=== PATIENT | female | born 1995 | race Caucasian/White ===

== ENCOUNTER 2020-08-06 06:56 | Emergency (ER) | payer OTHER ==
[~2020-08-06] VITALS: Ht 165.1 cm; Wt 66.7 kg
[2020-08-06] MEDS ORDERED: ACET32TAB PO (07:07)
[2020-08-06] MEDS ORDERED: OXYC-517 PO (07:07)
[2020-08-06] MEDS ORDERED: SERT-141 PO (07:07)
[2020-08-06] MEDS ORDERED: VITA50005 PO (07:07)
[2020-08-06] MEDS ORDERED: AUGM875T28 PO (07:07)
[2020-08-06] MEDS ORDERED: TRAZ-252 PO (07:07)
[2020-08-06 07:55] LABS: BASO % 0.3 % (0.0-1.0); EOS # 0.1 10^3/uL (0.0-0.5); EOS % 1.4 % (0.0-3.0); HEMATOCRIT 43.5 % (36.0-47.0); HEMOGLOBIN 14.8 g/dl (12.0-15.5); LYMPH % 28.8 % (24.0-44.0); MEAN CORPUSCULAR HEMOGLOBIN 29.3 pg (27.0-33.0); MEAN CORPUSCULAR VOLUME 86.1 fl (80.0-96.0); MONO # 0.8 10^3/uL (0.0-0.8); NEUTROPHILS # 6.3 10^3/uL (1.5-8.5); PLATELET COUNT, AUTOMATED 292 10^3/uL (150-450); RED BLOOD COUNT 5.05 10^6/uL (4.00-5.40); WHITE BLOOD COUNT 10.3 10^3/uL (4.0-10.0)
[2020-08-06 08:18] LABS: ALBUMIN 3.7 GM/DL (3.2-5.2); ALT/SGPT 33 U/L (12-78); BILIRUBIN,DIRECT 0.1 MG/DL (0.0-0.2); BILIRUBIN,TOTAL 0.3 MG/DL (0.2-1.0); BLOOD UREA NITROGEN 9 MG/DL (7-18); CALCIUM LEVEL 8.7 MG/DL (8.5-10.1); CARBON DIOXIDE LEVEL 27 MEQ/L (21-32); CHLORIDE LEVEL 108 MEQ/L (98-107); CREATININE FOR GFR 0.72 MG/DL (0.55-1.30); GLOMERULAR FILTRATION RATE > 60.0 (>60); GLUCOSE, FASTING 90 MG/DL (70-100); LIPASE 119 U/L (73-393); POTASSIUM SERUM 3.7 MEQ/L (3.5-5.1); SODIUM LEVEL 140 MEQ/L (136-145); TOTAL PROTEIN 6.9 GM/DL (6.4-8.2)
[2020-08-06] MEDS ORDERED: GLYCERIN ADULT SUPP PR ONE (08:25)
[2020-08-06] MEDS ORDERED: MAGNESIUM CITRATE 300 ML BTL PO ONE (08:25)
[2020-08-06] MEDS ORDERED: METHYLNALTREXONE BROMIDE 12 MG/0.6 ML VIAL (RELISTOR) SC ONE (08:25)
[2020-08-06] MEDS ORDERED: ACETAMINOPHEN 500 MG TAB PO ONE (08:25)
--- NOTE | 2020-08-06 09:09 | REP ---
INDICATION: Abdominal Pain COMPARISON: None. TECHNIQUE: Upright view of the chest with supine and upright views of the abdomen and pelvis. FINDINGS: Frontal upright view of the chest demonstrates no acute cardiopulmonary process or free air below the diaphragm to suspect pneumoperitoneum. Supine and upright views of the abdomen and pelvis demonstrate nonspecific bowel gas pattern without obstruction or perforation. No organomegaly. No abnormal calcifications. Skeletal structures normal for age. IMPRESSION: Nonspecific bowel gas pattern. <Electronically signed by German Guerra > 08/06/20 [id number]
[2020-08-06] MEDS ORDERED: MIRA3350 PO (12:44)
[2020-08-06] MEDS ORDERED: COLA100C5 PO (12:44)
[2020-08-06 12:51] VITALS: BP 121/73
== END 2020-08-06 12:57 | disposition home or self-care (01) ==
LOC: M ED 06:56
DX: K59.00 Constipation, unspecified (principal); R10.84 Generalized abdominal pain; G47.00 Insomnia, unspecified; F33.9 Major depressive disorder, recurrent, unspecified; F41.9 Anxiety disorder, unspecified; Z79.899 Other long term (current) drug therapy

== ENCOUNTER → 2023-06-22 | Outpatient (REF) | payer OTHER ==
[~2023-06-22] MED LIST: ACET32TAB PO; AUGM875T28 PO; COLA100C5 PO; ERGO500029 PO; MIRA3350 PO; OXYC-517 PO; SERT-141 PO; TRAZ-252 PO
== END ==
LOC: M SFHCWAGY 14:55
PROVIDERS: ATTEND Nurse Practitioner Family
DX: Z12.4 Encounter for screening for malignant neoplasm of cervix (principal); Z77.9 Other contact with and (suspected) exposures hazardous to health
CPT/HCPCS: 87624; G0123

== ENCOUNTER → 2024-01-08 | Outpatient (CLI) | payer OTHER | LOC: M PLALAB 10:23 | PROVIDERS: ATTEND Advanced Practice Midwife | DX: Z34.81 Encounter for supervision of other normal pregnancy, first trimester (principal); Z3A.00 Weeks of gestation of pregnancy not specified ==

== ENCOUNTER → 2024-02-08 | Outpatient (CLI) | payer OTHER ==
[2024-02-08 15:19] LABS: HEMATOCRIT 37.9 % (36.0-47.0); HEMOGLOBIN 12.9 g/dl (12.0-15.5); MEAN CORPUSCULAR HEMOGLOBIN 30.4 pg (27.0-33.0); MEAN CORPUSCULAR VOLUME 89.2 fl (80.0-96.0); PLATELET COUNT, AUTOMATED 251 10^3/uL (150-450); RED BLOOD COUNT 4.25 10^6/uL (4.00-5.40); WHITE BLOOD COUNT 10.5 10^3/uL (4.0-10.0)
[2024-02-08 16:17] LABS: HIV 1&2 SCREEN NEGATIVE (NEGATIVE)
[2024-02-08 16:27] LABS: HEPATITIS C VIRUS ABY INDEX < 0.02 INDEX (<0.8)
[2024-02-08 16:47] LABS: GC DNA AMPLIFICATION NEGATIVE (NEGATIVE)
== END ==
LOC: M PLALAB 09:09
PROVIDERS: ATTEND Internal Medicine
DX: Z34.81 Encounter for supervision of other normal pregnancy, first trimester (principal); Z3A.00 Weeks of gestation of pregnancy not specified

== ENCOUNTER → 2024-02-08 | Outpatient (CLI) | payer OTHER | LOC: M PLALAB 09:05 | PROVIDERS: ATTEND Nurse Practitioner Family | DX: Z13.79 Encounter for other screening for genetic and chromosomal anomalies (principal) ==

== ENCOUNTER → 2024-03-18 | Outpatient (CLI) | payer OTHER | LOC: M WHC 07:40 | PROVIDERS: ATTEND Nurse Practitioner Family | DX: Z34.82 Encounter for supervision of other normal pregnancy, second trimester (principal) ==

== ENCOUNTER → 2024-04-08 | Outpatient (CLI) | payer OTHER ==
[2024-04-08 14:58] LABS: Trichomonas vaginalis (AMP) NOT DETECTED (NEGATIVE)
[2024-04-08 15:01] LABS: HEMATOCRIT 35.1 % (36.0-47.0); HEMOGLOBIN 11.8 g/dl (12.0-15.5); MEAN CORPUSCULAR HEMOGLOBIN 30.2 pg (27.0-33.0); MEAN CORPUSCULAR HGB CONC 33.6 g/dl (32.0-36.5); MEAN CORPUSCULAR VOLUME 89.8 fl (80.0-96.0); PLATELET COUNT, AUTOMATED 242 10^3/uL (150-450); RED BLOOD COUNT 3.91 10^6/uL (4.00-5.40); WHITE BLOOD COUNT 10.6 10^3/uL (4.0-10.0)
[2024-04-08 15:22] LABS: GC DNA AMPLIFICATION NEGATIVE (NEGATIVE)
[2024-04-08 15:25] LABS: GLUCOSE CHALLENGE TEST 1 HOUR 130 MG/DL (LESS THAN 140)
[2024-04-08 15:54] LABS: HIV 1&2 SCREEN NEGATIVE (NEGATIVE)
[2024-04-08 16:02] LABS: HEPATITIS C VIRUS ABY INDEX 0.12 INDEX (<0.8)
== END ==
LOC: M PLALAB 10:10
PROVIDERS: ATTEND Nurse Practitioner Family
DX: Z34.83 Encounter for supervision of other normal pregnancy, third trimester (principal); Z3A.00 Weeks of gestation of pregnancy not specified

== ENCOUNTER → 2024-04-08 | Outpatient (CLI) | payer OTHER | LOC: M RAD 16:00 | PROVIDERS: ATTEND Nurse Practitioner Family | DX: Z34.82 Encounter for supervision of other normal pregnancy, second trimester (principal) ==

== ENCOUNTER → 2024-04-17 | Outpatient (CLI) | payer OTHER | LOC: M LAB 07:40 | PROVIDERS: ATTEND Nurse Practitioner Family | DX: R73.09 Other abnormal glucose (principal) ==

== ENCOUNTER → 2024-06-30 | Outpatient (REF) | payer OTHER | LOC: M PLALAB 11:05 | PROVIDERS: ATTEND Nurse Practitioner Family | DX: O09.293 Supervision of pregnancy with other poor reproductive or obstetric history, third trimester (principal); O12.03 Gestational edema, third trimester; O99.343 Other mental disorders complicating pregnancy, third trimester; F43.10 Post-traumatic stress disorder, unspecified; F41.9 Anxiety disorder, unspecified; F32.A Depression, unspecified; F90.9 Attention-deficit hyperactivity disorder, unspecified type; Z3A.36 36 weeks gestation of pregnancy; Z86.19 Personal history of other infectious and parasitic diseases; Z91.048 Other nonmedicinal substance allergy status ==

== ENCOUNTER 2024-07-04 14:36 | Inpatient (IN) | payer OTHER ==
[2024-07-04] VITALS (11 sets, daily range): BP systolic 120–134; BP diastolic 56–85; TEMP 98.6; O2SAT 97–99
[~2024-07-04] VITALS: Ht 165.1 cm; Wt 87.0 kg
[2024-07-04] MEDS ORDERED: PREN200C PO (14:56)
[2024-07-04] MEDS ORDERED: CALC500C16 PO (14:56)
[2024-07-04] MEDS ORDERED: ADDE1TAB14 PO (14:56)
[2024-07-04 15:13] LABS: HEMATOCRIT 34.3 % (36.0-47.0); HEMOGLOBIN 11.3 g/dl (12.0-15.5); MEAN CORPUSCULAR HEMOGLOBIN 26.7 pg (27.0-33.0); MEAN CORPUSCULAR HGB CONC 32.9 g/dl (32.0-36.5); MEAN CORPUSCULAR VOLUME 80.9 fl (80.0-96.0); PLATELET COUNT, AUTOMATED 252 10^3/uL (150-450); RED BLOOD COUNT 4.24 10^6/uL (4.00-5.40); WHITE BLOOD COUNT 11.4 10^3/uL (4.0-10.0)
[2024-07-04 15:21] LABS: KETONE, URINE AUTO RFX TRACE mg/dL (NEGATIVE); MUCUS, URINE RFX SMALL (NEGATIVE); NITRITE, URINE AUTO RFX NEGATIVE (NEGATIVE); RBC, URINE AUTO RFX 0 /HPF (0-3); SQUAM EPITHELIAL CELL UR AURFX 10 /HPF (0-6)
[2024-07-04 15:22] LABS: LEUKOCYTE ESTERASE UR AUTO RFX 2+ (NEGATIVE); WBC, URINE AUTO RFX 24 /HPF (0-3)
[2024-07-04 15:30] LABS: TOTAL PROTEIN,RANDOM URINE 20.8 MG/DL (0.0-14.0)
[2024-07-04 15:33] LABS: URIC ACID 5.1 MG/DL (3.1-7.8)
[2024-07-04 15:35] LABS: CREATININE,RANDOM URINE 175.3 MG/DL
[2024-07-04 15:35] LABS: LDH LACTATE DEHYDROGENASE 190 U/L (120-246)
[2024-07-04 15:36] LABS: ALT/SGPT 10 U/L (7.0-40); AST/SGOT 17 U/L (<34); BILIRUBIN,TOTAL 0.4 MG/DL (0.3-1.2); GLOMERULAR FILTRATION RATE > 90.0 (>60)
[2024-07-04] MEDS ORDERED: TRANEXAMIC ACID INJection 1,000 MG in NS 100 ML IV PRN (15:40)
[2024-07-04] MEDS ORDERED: OXYTOCIN DRIP 30 UNITS in IV 1 EA IV PRN (15:40)
[2024-07-04] MEDS ORDERED: METHYLERGONOVINE MALEATE 0.2MG/ML 1ML VIAL IM PRN (15:40)
[2024-07-04] MEDS ORDERED: LIDOCAINE 1% MDV 20ML VIAL INFIL PRN (15:40)
[2024-07-04] MEDS: LACTATED RINGER'S 1000 ML IV STA (15:45)
[2024-07-04] MEDS ORDERED: KETOROLAC 30 MG/ML 1ML VIAL As Ordered ONE (15:51)
[2024-07-04] MEDS ORDERED: ONDANSETRON 4MG 2ML VIAL As Ordered ONE (15:51)
[2024-07-04] MEDS ORDERED: PHENYLephrine 500MCG 5ML (100MCG/ML) SYRINGE As Ordered ONE (15:52)
[2024-07-04] MEDS ORDERED: OXYTOCIN INJ 10UNITS/ML 1ML VIAL As Ordered ONE (15:52)
[2024-07-04] MEDS ORDERED: MORPHINE PRES-FREE INJ 10 MG/10 ML VIAL As Ordered ONE (15:55)
[2024-07-04] MEDS: AZITHROMYCIN INJ 500 MG, VIAL MATE ADAPTER 1 EACH in NS 250 ML IV ONE (15:57)
[2024-07-04] MEDS: ceFAZolin SODIUM 2 GM in DEXTROSE 5% (D5W) ADV/MINI-BAG 50 ML IV ONE (15:58)
[2024-07-04] MEDS: BICITRA 30ML SOLN UDC PO ONE (15:58)
[2024-07-04] MEDS ORDERED: METOCLOPRAMIDE INJ 10MG/2ML VIAL As Ordered ONE (16:06)
[2024-07-04] MEDS ORDERED: METOCLOPRAMIDE INJ 10MG/2ML VIAL IV PRN (16:15)
[2024-07-04] MEDS ORDERED: HYDROMORPHONE HCL 0.5 MG/ 0.5 ML SYRINGE IV PRN (16:15)
[2024-07-04] MEDS ORDERED: MEPERIDINE 25 MG/ML 1ML VIAL IV PRN (16:15)
[2024-07-04] MEDS ORDERED: **NOTE PATIENT COMMENT** MISC XX SCH (16:15)
[2024-07-04] MEDS ORDERED: NALOXONE INJ 0.4MG/1ML VIAL IV PRN ×2 (16:15)
[2024-07-04] MEDS ORDERED: fentaNYL 100 MCG/2 ML INJECTION IV PRN (16:15)
[2024-07-04] MEDS ORDERED: diphenhydrAMINE 50MG/ML VIAL IV PRN (16:15)
[2024-07-04] MEDS ORDERED: oxyCODONE 5MG TAB PO PRN (16:15)
[2024-07-04] MEDS: SLF 3 ML SYR IV SCH (16:15)
[2024-07-04] MEDS ORDERED: ONDANSETRON 4MG 2ML VIAL IV PRN ×2 (16:15→17:15)
[2024-07-04 16:39] LABS: HEPATITIS C VIRUS ABY INDEX 0.02 INDEX (<0.8); HIV 1&2 SCREEN NEGATIVE (NEGATIVE)
[2024-07-04] MEDS ORDERED: OXYTOCIN 30UNITS IN 0.9% NaCl 500ML IV BAG As Ordered ONE (17:14)
[2024-07-04] MEDS ORDERED: CALCIUM CARBONATE 500 MG CHEW U/D PO PRN (17:15)
[2024-07-04] MEDS ORDERED: SIMETHICONE 80MG CHEW TAB PO PRN (17:15)
[2024-07-04] MEDS: LR 1,000 ML IV SCH (17:15)
[2024-07-04] MEDS ORDERED: RHOGAM 300MCG (1500IU) INJ IM SCH (17:15)
[2024-07-04] MEDS ORDERED: PERCOCET 5MG/325MG TAB PO PRN (17:15)
[2024-07-04] MEDS ORDERED: MOM 30ML SUSPENSION UDC PO PRN (17:15)
[2024-07-04] MEDS: OXYTOCIN DRIP 30 UNITS in IV 1 EA IV SCH (17:22)
[2024-07-04] MEDS: DOCUSATE SODIUM 100MG CAPSULE PO SCH (22:09)
[2024-07-04] MEDS: KETOROLAC 30 MG/ML 1ML VIAL IV SCH (23:05)
[2024-07-05 01:49] VITALS: BP 125/69; O2SAT 97
[2024-07-05 06:05] VITALS: BP 119/61; O2SAT 98
[2024-07-05 06:35] LABS: HEMATOCRIT 29.3 % (36.0-47.0); HEMOGLOBIN 9.6 g/dl (12.0-15.5); MEAN CORPUSCULAR HEMOGLOBIN 26.9 pg (27.0-33.0); MEAN CORPUSCULAR HGB CONC 32.8 g/dl (32.0-36.5); MEAN CORPUSCULAR VOLUME 82.1 fl (80.0-96.0); PLATELET COUNT, AUTOMATED 190 10^3/uL (150-450); RED BLOOD COUNT 3.57 10^6/uL (4.00-5.40); WHITE BLOOD COUNT 13.9 10^3/uL (4.0-10.0)
[2024-07-05] MEDS: PRENATAL VITAMINS CHEWABLE TABLET PO SCH (08:31)
[2024-07-05] MEDS: FERROUS SULFATE 325MG TAB PO SCH (08:32)
[2024-07-05] MEDS: ADDERALL 5 MG TAB PO SCH (09:14)
[2024-07-05 10:00] VITALS: BP 126/65; O2SAT 98
[2024-07-05 14:00] VITALS: BP 130/65; O2SAT 100
[2024-07-05] MEDS ORDERED: COLA100C5 PO (15:49)
[2024-07-05] MEDS ORDERED: IBUP80TA PO (15:49)
[2024-07-05 18:00] VITALS: BP 126/72; O2SAT 100
[2024-07-05] MEDS: IBUPROFEN 800 MG TAB PO SCH (18:36)
[2024-07-05] MEDS: PERCOCET 5MG/325MG TAB PO PRN (18:36)
[2024-07-05 22:15] VITALS: BP 127/67; O2SAT 98
[2024-07-06 02:11] VITALS: BP 107/57; O2SAT 96
[2024-07-06 06:20] VITALS: BP 126/66; O2SAT 99
[2024-07-06] MEDS ORDERED: MEASLES,MUMPS,RUBELLA VACCINE INJ (MMR-II) SC.IMMUN ONE (09:00)
== END 2024-07-06 13:20 | disposition home or self-care (01) | DRG 773 ==
LOC: M LDO 14:36 → M LDI 15:45 → M OBS 18:30
PROVIDERS: ADMIT Advanced Practice Midwife; ATTEND Advanced Practice Midwife
PROC: 10D00Z1 Extraction of Products of Conception, Low, Open Approach (ICD-10-PCS; principal; 2024-07-04 15:45)
DX: O60.14X0 Preterm labor third trimester with preterm delivery third trimester, not applicable or unspecified (principal); Z3A.36 36 weeks gestation of pregnancy; Z37.0 Single live birth; Z87.59 Personal history of other complications of pregnancy, childbirth and the puerperium